=== PATIENT | female | born 1945 | race Caucasian/White ===

== ENCOUNTER 2022-11-19 16:45 | Outpatient (CLI) | payer MEDICARE | END 2022-11-19 17:00 | disposition home or self-care (01) | LOC: LAB.N 16:45 | PROVIDERS: ATTEND Physician Assistant Medical | DX: N12 Tubulo-interstitial nephritis, not specified as acute or chronic (principal) | CPT/HCPCS: 87086 ==

== ENCOUNTER 2023-06-17 13:53 | Outpatient (CLI) | payer MEDICARE ==
[2023-06-17 14:25] LABS: BASOPHILS # (AUTO) 0.1 10^3/uL (0.0-0.1); BASOPHILS % (AUTO) 1.4 %; EOSINOPHILS # (AUTO) 0.4 10^3/uL (0.0-0.7); EOSINOPHILS % (AUTO) 6.5 %; HCT - HEMATOCRIT 39.4 % (37.0-47.0); HGB - HEMOGLOBIN 12.2 g/dL (12.0-16.0); LYMPHOCYTES # (AUTO) 1.7 10^3/uL (1.5-3.5); LYMPHOCYTES % (AUTO) 25.9 %; MEAN CORPUSCULAR HEMOGLOBIN 28.5 pg (27.0-31.0); MEAN CORPUSCULAR VOLUME 92.1 fL (81.0-99.0); MEAN PLATELET VOLUME 9.3 fL (7.9-10.8); MONOCYTES # (AUTO) 0.4 10^3/uL (0.0-1.0); MONOCYTES % (AUTO) 5.7 %; NEUTROPHILS % (AUTO) 60.2 %; PLT - PLATELET COUNT 350 10^3/uL (130-450); RED BLOOD COUNT 4.28 10^6/uL (4.20-5.40); RED CELL DISTRIBUTION WIDTH 13.9 % (12.0-15.0); WHITE BLOOD COUNT 6.6 x10^3/uL (4.8-10.8)
[2023-06-17 14:42] LABS: ALBUMIN 4.6 g/dL (3.2-5.5); ALBUMIN/GLOBULIN RATIO 1.5 (1.0-2.2); BILIRUBIN,TOTAL 0.7 mg/dL (0.2-1.0); CALCIUM 9.8 mg/dL (8.5-10.3); POTASSIUM 4.2 mmol/L (3.5-4.5); TOTAL PROTEIN 7.6 g/dL (6.4-8.9)
== END 2023-06-17 13:54 | disposition home or self-care (01) ==
LOC: LAB 13:53
PROVIDERS: ATTEND Internal Medicine Medical Oncology
DX: C92.10 Chronic myeloid leukemia, BCR/ABL-positive, not having achieved remission (principal)
CPT/HCPCS: 36415; 80053; 81206; 81207; 81599; 85025

== ENCOUNTER 2023-06-28 13:18 | Emergency (ER) | payer MEDICARE ==
[2023-06-28 13:30] VITALS: BP 155/74; O2SAT 97
[2023-06-28 14:24] LABS: BILIRUBIN,URINE NEGATIVE (NEGATIVE); GLUCOSE, URINE (UA) NEGATIVE (NEGATIVE); KETONES,URINE (UA) NEGATIVE (NEGATIVE); LEUKOCYTE ESTERASE, URINE MODERATE (NEGATIVE); NITRITE,URINE NEGATIVE (NEGATIVE); OCCULT BLOOD,URINE NEGATIVE (NEGATIVE); PROTEIN,URINE NEGATIVE (NEGATIVE); UROBILINOGEN,URINE 0.2 (NORMAL) E.U./dL (NORMAL)
[2023-06-28 14:28] LABS: CLARITY,URINE CLEAR (CLEAR)
--- NOTE | 2023-06-28 14:33 | ED Physician Documentation ---
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 She does have some mild right flank pain with it. No fevers. States she had a UTI last year and was started on Cipro but had to be changed to cefpodoxime. I am not available to those culture results. 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 - Present Medications Home Medications: Ambulatory Orders Medication Instructions Recorded Confirmed Bosutinib [Bosulif] 200 mg PO HS 11/05/22 05/06/23 Ondansetron [Ondansetron Odt] 8 mg SL Q6HR 11/05/22 05/06/23 Cefpodoxime Proxetil [Vantin] 100 mg PO Q12H #10 tablet 06/28/23 Phenazopyridine HCl [Pyridium] 200 mg PO TID PRN #6 tablet 06/28/23 - Allergies Allergies/Adverse Reactions: Allergies Allergy/AdvReac Type Severity Reaction Status Date / Time aspirin Allergy Unknown Verified 06/28/23 13:22 Penicillins Allergy Unknown Verified 06/28/23 13:22 Sulfa (Sulfonamide Allergy Unknown Verified 06/28/23 13:22 Antibiotics) - Social History Does the pt smoke?: No Smoking Status: Never smoker Does the pt drink ETOH?: No Does the pt have substance abuse?: No - Immunizations Immunizations are current?: Yes PD ED PE NORMAL - Vitals Vital signs reviewed: Yes - General General: Alert and oriented X 3, No acute distress - Abdomen Abdomen: Non tender - Back Back: No CVA TTP Results - Vitals Vitals: Vital Signs - 24 hr 06/28/23 13:23 Temperature 36.8 C Heart Rate 90 Respiratory 18 Rate Blood Pressure 155/74 H O2 Saturation 97 Oxygen O2 Source Room air - Labs Labs: Laboratory Tests 06/28/23 13:45 Urine Color YELLOW Urine Clarity CLEAR Urine pH 6.0 Ur Specific [place] <=1.005 Urine Protein NEGATIVE Urine Glucose (UA) NEGATIVE Urine Ketones NEGATIVE Urine Occult Blood NEGATIVE Urine Nitrite NEGATIVE Urine Bilirubin NEGATIVE Urine Urobilinogen 0.2 (NORMAL) Ur Leukocyte Esterase MODERATE H Urine RBC 0-5 Urine WBC 6-10 H Ur Squamous Epith Cells MOD Squamous H Urine Bacteria Few Ur Microscopic Review INDICATED Urine Culture Comments NOT INDICATED PD Medical Decision Making - ED course ED course: 78-year-old woman with cystitis symptoms. She also has some right flank pain albeit not tender there and she appears well. Urinalysis does show signs of infection. She did have some squamous cells, but given her typical symptoms we will culture it anyway. Started on cefpodoxime. She states that she had been previously prescribed Cipro and it was changed to cefpodoxime due to interactions with her chemotherapy for her CML. Departure - Departure Disposition: Home, Self Care Clinical Impression: Cystitis Condition: Good Record reviewed to determine appropriate education?: Yes Instructions: ED UTI Cystitis Female Prescriptions: Phenazopyridine HCl [Pyridium] 200 mg PO TID PRN #6 tablet PRN Reason: dysuria Cefpodoxime Proxetil [Vantin] 100 mg PO Q12H #10 tablet Comments: I sent your prescription electronically to the [facility] pharmacy at the corner of [address] here in [place]. We will culture your urine, the results should be done in 48-72 hours. If an antibiotic change is necessary we will call you. Return if worse in the meantime, especially if you develop increasing flank pain, fevers, or cannot keep down the medication. Forms: PCP List Discharge Date/Time: 06/28/23 14:39
[2023-06-28 14:40] LABS: BACTERIA,URINE Few /HPF (None Seen); RBC,URINE 0-5 /HPF (0-5); SQUAMOUS EPITHELIAL CELL,UR MOD Squamous (<= Few)
== END 2023-06-28 14:39 | disposition home or self-care (01) ==
LOC: ED 13:18
DX: N30.90 Cystitis, unspecified without hematuria (principal); Z79.899 Other long term (current) drug therapy; Z87.440 Personal history of urinary (tract) infections
CPT/HCPCS: 81001; 81003; 87077; 87086; 87181; 99283

== ENCOUNTER 2023-08-05 13:55 | Emergency (ER) | payer MEDICARE ==
[2023-08-05 14:05] VITALS: BP 155/86; O2SAT 96
[2023-08-05 14:30] LABS: BILIRUBIN,URINE NEGATIVE (NEGATIVE); GLUCOSE, URINE (UA) NEGATIVE (NEGATIVE); KETONES,URINE (UA) NEGATIVE (NEGATIVE); OCCULT BLOOD,URINE NEGATIVE (NEGATIVE)
[2023-08-05 14:31] LABS: CLARITY,URINE CLOUDY (CLEAR)
[2023-08-05 14:38] LABS: BACTERIA,URINE Moderate /HPF (None Seen); RBC,URINE 0-5 /HPF (0-5); SQUAMOUS EPITHELIAL CELL,UR MANY Squamous (<= Few); WBC,URINE 0-3 /HPF (0-5)
--- NOTE | 2023-08-05 15:47 | ED Physician Documentation ---
PD HPI FEMALE - Stated complaint Stated Complaint: - Chief complaint Chief Complaint: UTI - History obtained from History obtained from: Patient - Additional information Additional information: Patient is a 78-year-old female presenting for evaluation of UTI symptoms. She reports having dysuria for the past 2 days. She states that she was recently a year ago and her has a penile implant. She states that she has been getting recurrent UTIs after they have sexual intercourse and this is at least her fourth episode.She says that she has tried other maneuvers to prevent infections such as drinking water and using estrogen cream which was prescribed by her provider. She denies fever, chest pain, abdominal pain.She is taking Pyridium for the dysuria. 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 - Present Medications Home Medications: Ambulatory Orders Medication Instructions Recorded Confirmed Bosutinib [Bosulif] 200 mg PO HS 11/05/22 05/06/23 Ondansetron [Ondansetron Odt] 8 mg SL Q6HR 11/05/22 05/06/23 Cefpodoxime Proxetil [Vantin] 100 mg PO Q12H #10 tablet 06/28/23 Phenazopyridine HCl [Pyridium] 200 mg PO TID PRN #6 tablet 06/28/23 Cefpodoxime Proxetil [Vantin] 100 mg PO Q12H #10 tablet 08/05/23 cephALEXin [Keflex] 500 mg PO ONCE PRN #7 cap 08/05/23 - Allergies Allergies/Adverse Reactions: Allergies Allergy/AdvReac Type Severity Reaction Status Date / Time aspirin Allergy Unknown Verified 08/05/23 14:03 Penicillins Allergy Unknown Verified 08/05/23 14:03 Sulfa (Sulfonamide Allergy Unknown Verified 08/05/23 14:03 Antibiotics) - Social History Does the pt smoke?: No Smoking Status: Never smoker Does the pt drink ETOH?: No Does the pt have substance abuse?: No - Immunizations Immunizations are current?: Yes PD ED PE NORMAL - General General: Alert and oriented X 3, No acute distress, Well developed/nourished - HEENT HEENT: Atraumatic - Neck Neck: Supple, no meningeal sign - Cardiac Cardiac: RRR - Respiratory Respiratory: No respiratory distress - Abdomen Abdomen: Normal bowel sounds, Soft, Non tender, Non distended - Derm Derm: Warm and dry - Neuro Neuro: Normal speech Results - Vitals Vitals: Vital Signs - 24 hr 08/05/23 14:03 Temperature 36.5 C Heart Rate 80 Respiratory 16 Rate Blood Pressure 155/86 H O2 Saturation 96 Oxygen O2 Source Room air - Labs Labs: Laboratory Tests 08/05/23 14:15 Urine Color DK. ORANGE Urine Clarity CLOUDY Urine pH 5.0 Ur Specific [place] 1.010 Urine Protein Urine Glucose (UA) NEGATIVE Urine Ketones NEGATIVE Urine Occult Blood NEGATIVE Urine Nitrite Urine Bilirubin NEGATIVE Urine Urobilinogen Ur Leukocyte Esterase Urine RBC 0-5 Urine WBC 0-3 Ur Squamous Epith Cells MANY Squamous H Urine Bacteria Moderate H Ur Microscopic Review INDICATED Urine Culture Comments NOT INDICATED PD Medical Decision Making - ED course Complexity details: reviewed results, d/w patient ED course: Patient is a 78-year-old female presenting with UTI symptoms for the past 2 days. Patient states that she has been getting these regularly after having intercourse with her .Vital signs are stable. No abdominal tenderness. Patient is on Pyridium so urine analysis is difficult to interpret but there are many bacteria and given her symptoms do feel it is appropriate to treat with antibiotics. Will start her on a course of cefpodoxime. We also discussed Treatment options for post colloidal UTIs as she has been getting these frequently. Discussed trial of antibiotic prophylaxis after intercourse with a single dose of cephalexin. She is agreeable to this. Her PCP is unavailable for the next month so I will prescribe a small amount of cephalexin which patient understands is to be used for Prophylaxis after intercourse. Departure - Departure Disposition: 01 Home, Self Care Clinical Impression: Urinary tract infection Condition: Stable Instructions: ED UTI Cystitis Female Prescriptions: cephALEXin [Keflex] 500 mg PO ONCE PRN #7 cap PRN Reason: Per Physician Order Cefpodoxime Proxetil [Vantin] 100 mg PO Q12H #10 tablet Comments: I am starting you on an antibiotic for urinary tract infection and called cefpodoxime (Vantin). I am also sending a prescription for a second antibiotic called cephalexin (Keflex). You can take this once a day after intercourse to try and prevent a UTI. I would recommend close follow-up with your primary care provider to discussed long-term management of post coital/intercourse UTIs. Return to the emergency department with any worsening symptoms. Your prescriptions were sent to the [facility] pharmacy. Forms: PCP List Discharge Date/Time: 08/05/23 15:53
== END 2023-08-05 15:53 | disposition home or self-care (01) ==
LOC: ED 13:55
DX: N39.0 Urinary tract infection, site not specified (principal); Z87.440 Personal history of urinary (tract) infections; Z79.899 Other long term (current) drug therapy
CPT/HCPCS: 81001; 81003; 87086; 99283

== ENCOUNTER 2023-09-20 15:54 | Outpatient (CLI) | payer MEDICARE ==
--- NOTE | 2023-09-24 09:35 | Ultrasound Report ---
PROCEDURE: Renal (Retroperitoneal) INDICATIONS: RENAL MASS TECHNIQUE: Real-time scanning was performed of the retroperitoneal organs, with image documentation. COMPARISON: None available. FINDINGS: Kidneys: Kidneys are normal in size. Right kidney measures 10.4 cm long; left kidney measures 9.5 c m long. Right renal cortical thickness is 1.1 cm; left renal cortical thickness is 1.1 cm. No hydro nephrosis or nephrolithiasis. Right mid kidney echogenic mass measuring 2 x 2 x 1.5 cm. There is inte rnal vascularity. Bladder: Pre-void bladder volume is 215 mL. Post-void residual is 38 mL. Pre-void images demonstra te no intraluminal masses or stones. On pre-void images, both ureteral jets are noted with color Dop pler interrogation. (Of note, ureteral jets may not be detectable in up to 25% of cases due to insuf ficient differences in specific gravity between ureteral and bladder urine). Miscellaneous: No free abdominal fluid. IMPRESSION: 1. Right mid kidney echogenic mass measuring 2 cm. Indeterminant. (Per report this previously measure d 1.8 cm). 2. No hydronephrosis. 3. Postvoid residual 38 cc. Consider further evaluation with renal MRI or CT. Reviewed by: Law Salgado MD on 09/24/2023 9:33 AM PDT Approved by: Law Salgado MD on 09/24/2023 9:33 AM PDT Station ID: [id number]
== END 2023-09-20 15:55 | disposition home or self-care (01) ==
LOC: DI 15:54
PROVIDERS: ATTEND Urology
DX: N28.89 Other specified disorders of kidney and ureter (principal)

== ENCOUNTER 2023-10-22 10:31 | Outpatient (CLI) | payer MEDICARE ==
[2023-10-22 10:58] LABS: BASOPHILS # (AUTO) 0.1 10^3/uL (0.0-0.1); BASOPHILS % (AUTO) 0.7 %; EOSINOPHILS # (AUTO) 0.3 10^3/uL (0.0-0.7); EOSINOPHILS % (AUTO) 3.7 %; HGB - HEMOGLOBIN 12.1 g/dL (12.0-16.0); LYMPHOCYTES # (AUTO) 1.7 10^3/uL (1.5-3.5); LYMPHOCYTES % (AUTO) 21.3 %; MEAN CORPUSCULAR HEMOGLOBIN 29.4 pg (27.0-31.0); MEAN CORPUSCULAR HGB CONC 31.8 g/dL (32.0-36.0); MEAN CORPUSCULAR VOLUME 92.2 fL (81.0-99.0); MEAN PLATELET VOLUME 9.3 fL (7.9-10.8); MONOCYTES # (AUTO) 0.5 10^3/uL (0.0-1.0); NEUTROPHILS # (AUTO) 5.6 10^3/uL (1.5-6.6); NEUTROPHILS % (AUTO) 67.8 %; PLT - PLATELET COUNT 355 10^3/uL (130-450); RED BLOOD COUNT 4.12 10^6/uL (4.20-5.40); RED CELL DISTRIBUTION WIDTH 13.9 % (12.0-15.0); WHITE BLOOD COUNT 8.2 x10^3/uL (4.8-10.8)
[2023-10-22 11:15] LABS: ALBUMIN 4.7 g/dL (3.2-5.5); ALBUMIN/GLOBULIN RATIO 1.6 (1.0-2.2); BILIRUBIN,TOTAL 0.6 mg/dL (0.2-1.0); CALCIUM 9.8 mg/dL (8.5-10.3); POTASSIUM 4.4 mmol/L (3.5-4.5); TOTAL PROTEIN 7.7 g/dL (6.4-8.9)
== END 2023-10-22 10:32 | disposition home or self-care (01) ==
LOC: LAB 10:31
PROVIDERS: ATTEND Internal Medicine Medical Oncology
DX: C92.10 Chronic myeloid leukemia, BCR/ABL-positive, not having achieved remission (principal)
CPT/HCPCS: 36415; 80053; 81206; 81207; 81599; 85025

== ENCOUNTER 2023-11-09 19:03 | Emergency (ER) | payer MEDICARE ==
--- NOTE | 2023-11-09 19:57 | XRAY Report ---
PROCEDURE: Ankle 3+V LT INDICATIONS: injury to ankle head @ 1800, c/o pain. TECHNIQUE: 2 views of the ankle were acquired. COMPARISON: None. FINDINGS: Bones: No fractures or dislocations. Ankle mortise is normally aligned. No suspicious bony lesions . Soft tissues: No tibiotalar joint effusion. Achilles tendon appears normal. IMPRESSION: No acute bony abnormality. If there is continued clinical concern for pathology or occult fracture, consider follow-up imaging w ith repeat radiographs in 10-14 days and possible advanced imaging (CT, MRI, bone scan) if symptoms p ersist. Reviewed by: Christiano Ibarra MD on 11/09/2023 7:55 PM PDT Approved by: Christiano Ibarra MD on 11/09/2023 7:55 PM PDT Station ID: [id number]
--- NOTE | 2023-11-09 20:20 | ED Physician Documentation ---
History of Present Illness - Stated complaint Stated Complaint: HEAD/LT ANKLE PX - Chief complaint Chief Complaint: Trauma Ext - Additonal information Additional information: Patient is a 78-year-old female presenting to the emergency department after a fall at home she is tripped over carpet hit her head and sustained injury to left ankle after rolling it. She notes she was able to get up did not lose consciousness and is not on blood thinners. She notes persistent pain to the lateral portion of the left ankle as well as persistent pain to lower neck and head. She notes she has history of degenerative changes to her neck and has c oncerns given persistent neck pain. No numbness tingling no confusion. Patient is ANO x 3 able to answer questions. 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 Medications Home Medications: Ambulatory Orders Medication Instructions Recorded Confirmed Bosutinib [Bosulif] 200 mg PO HS 11/05/22 05/06/23 Ondansetron [Ondansetron Odt] 8 mg SL Q6HR 11/05/22 05/06/23 Cefpodoxime Proxetil [Vantin] 100 mg PO Q12H #10 tablet 06/28/23 Phenazopyridine HCl [Pyridium] 200 mg PO TID PRN #6 tablet 06/28/23 Cefpodoxime Proxetil [Vantin] 100 mg PO Q12H #10 tablet 08/05/23 cephALEXin [Keflex] 500 mg PO ONCE PRN #7 cap 08/05/23 - Allergies Allergies/Adverse Reactions: Allergies Allergy/AdvReac Type Severity Reaction Status Date / Time aspirin Allergy Unknown Verified 11/09/23 19:17 Penicillins Allergy Unknown Verified 11/09/23 19:17 Sulfa (Sulfonamide Allergy Unknown Verified 11/09/23 19:17 Antibiotics) - Social History Does the pt smoke?: No Smoking Status: Never smoker Does the pt drink ETOH?: No Does the pt have substance abuse?: No - Immunizations Immunizations are current?: Yes - POLST Patient has POLST: No PD ED PE NORMAL - Vitals Vital signs reviewed: Yes - General General: Alert and oriented X 3 - HEENT HEENT: Atraumatic, PERRL, EOMI - Neck Neck: Supple, no meningeal sign, Other (Reproducible C-spine tenderness full range of motion intact however unable to clear with Nexus criteria given C-spine tenderness.) - Cardiac Cardiac: RRR - Respiratory Respiratory: No respiratory distress - Abdomen Abdomen: Normal bowel sounds, Non tender - Female Female : Deferred - Rectal Rectal: Deferred - Back Back: No CVA TTP - Derm Derm: Normal color, No rash - Extremities Extremities: No deformity, Other (Reproducible about lateral malleoli are tenderness no significant laxity full range of motion intact with strength intact bilaterally. No obvious deformity no fibular head tenderness good capillary refill and full range of motion of digits 1 through 5 and full range of motion of left knee intact.) Results - Vitals Vitals: Vital Signs - 24 hr 11/09/23 19:09 Temperature 36.9 C Heart Rate 80 Respiratory 16 Rate Blood Pressure 152/81 H O2 Saturation 99 Oxygen O2 Source Room air PD Medical Decision Making - ED course Complexity details: reviewed results, re-evaluated patient, d/w patient ED course: Patient is a 78-year-old female presenting to the emergency department with leg pain head pain and neck pain after a fall at home. She has persistent neck pain and ankle pain unable to bear weight on left ankle no previous injuries but does have history of degenerative disc disease in her neck. Vital stable on arrival physical exam shows reproducible C-spine tenderness unable to be cleared by Nexus criteria. Reproducible bilateral malleoli are tenderness to the left ankle but no fibular head tenderness. X-ray obtained of left ankle in triage shows no acute fracture patient most likely sprained given persistent pain on palpation and unable to bear weight at this time. Patient given Suleman wrap and crutches here in the emergency department. Patient still reporting reproducible neck pain will obtain C-spine and CT head on reevaluation. CT head showed no acute intracranial findings and reevaluation of C-spine does show degenerative changes in C5-C7 but no acute fracture or spondylolisthesis. Reassuring work-up here in the ED. Given reassuring work-up here in the ED will discharge home. Instructed patient to watch for any confusion worsening headaches vision changes numbness ting Departure - Departure Disposition: 01 Home, Self Care Clinical Impression: Left ankle sprain, Head injury, Ankle injury, Degenerative disc disease, cervical Condition: Good Instructions: ED Sprain Ankle W X Ray Comments: Your workup here in the emergency department showed most likely fall Forms: PCP List
--- NOTE | 2023-11-09 21:43 | CT Report ---
PROCEDURE: Cervical Spine WO INDICATIONS: neck pain, trauma TECHNIQUE: Noncontrast 3 mm thick sections acquired from the skull base to the T4 level. Sagittal and coronal r eformats were then constructed. For radiation dose reduction, the following was used: automated exp osure control, adjustment of mA and/or kV according to patient size. COMPARISON: None. FINDINGS: Image quality: Excellent. Bones: No fractures or dislocations. Visualized superior ribs are intact. Moderately severe degene rative disc disease at C6-C7 and C5-C6. Soft tissues: Prevertebral soft tissues are normal in thickness. No paravertebral hematomas. No ap ical pneumothoraces. IMPRESSION: No trauma found, no traumatic subluxation seen. Moderately severe low cervical degenerative disc dise ase at C5-6 and C6-7. Reviewed by: Tam Claudio MD on 11/09/2023 9:42 PM PDT Approved by: Tam Claudio MD on 11/09/2023 9:42 PM PDT Station ID: [id number]
--- NOTE | 2023-11-09 21:44 | CT Report ---
PROCEDURE: Head WO INDICATIONS: head injury and fall TECHNIQUE: Noncontrast 4.5 mm thick angled axial sections acquired from the foramen magnum to the vertex. For r adiation dose reduction, the following was used: automated exposure control, adjustment of mA and/or kV according to patient size. COMPARISON: None. FINDINGS: Image quality: Excellent. CSF spaces: Basal cisterns are patent. No extra-axial fluid collections. Ventricles are normal in size and shape. Brain: No midline shift. No intracranial masses or hemorrhage. Carver-white matter interface is norm al. Skull and face: Calvarium and visualized facial bones are intact, without suspicious lesions. Sinuses: Visualized sinuses and mastoids are clear. IMPRESSION: No acute intracranial pathology. No trauma seen. Reviewed by: Tam Claudio MD on 11/09/2023 9:43 PM PDT Approved by: Tam Claudio MD on 11/09/2023 9:43 PM PDT Station ID: [id number]
[2023-11-09 22:29] VITALS: BP 130/80; O2SAT 100
== END 2023-11-09 22:22 | disposition home or self-care (01) ==
LOC: ED 19:03
DX: S93.402A Sprain of unspecified ligament of left ankle, initial encounter (principal); S09.90XA Unspecified injury of head, initial encounter; W01.0XXA Fall on same level from slipping, tripping and stumbling without subsequent striking against object, initial encounter; M50.323 Other cervical disc degeneration at C6-C7 level
CPT/HCPCS: 99283; 99284

== ENCOUNTER 2023-11-19 08:00 | Outpatient (CLI) | payer MEDICARE | END 2023-11-19 08:01 | disposition home or self-care (01) | LOC: LAB 08:00 | PROVIDERS: ATTEND Urology | DX: R30.0 Dysuria (principal) | CPT/HCPCS: 87077; 87086; 87181 ==

== ENCOUNTER 2023-11-22 14:00 | Outpatient (CLI) | payer MEDICARE ==
--- NOTE | 2023-11-26 07:58 | Mammography Report ---
BILATERAL DIGITAL SCREENING MAMMOGRAM 3D/2D: 11/22/2023 CLINICAL: Routine screening. Personal history of left breast cancer. Comparison is made to exams dated: 08/11/2022 mammogram, 05/17/2021 mammogram, 03/02/2020 mammogram, mammogram, 10/24/2017 mammogram, and 01/14/2017 mammogram - [facility]. There are scattered areas of fibroglandular density in both breasts (category b / 25%-50% glandular t issue). There are benign post operative findings in the left breast. No significant masses, calcifications, or other findings are seen in either breast. There has been no significant interval change. IMPRESSION: BENIGN There is no mammographic evidence of malignancy. A 1 year screening mammogram is recommended. This exam was interpreted at Station ID: [id number]. NOTE: For mammograms, a report in lay terms will be sent to the patient. Approximately 15% of breast malignancies will not be visualized mammographically. In the management of a palpable breast mass, a negative mammogram must not discourage biopsy of a clinically suspicious lesion. Electronically Signed By: Morro jones/ai:11/25/2023 13:25:35 letter sent: No_Letter ACR BI-RADS Category 2: Benign Finding(s) 3342F PARENCHYMAL PATTERN: (A) - The breast(s) demonstrate(s) scattered fibroglandular densities. BI-RADS CATEGORY: (2) - 2 RECOMMENDATION: (ANNUAL) - Recommend routine annual screening mammography. [id number] 1 year screening LATERALITY: (B)
== END 2023-11-22 14:01 | disposition home or self-care (01) ==
LOC: DI 14:00
DX: Z12.31 Encounter for screening mammogram for malignant neoplasm of breast (principal); R92.323 Mammographic fibroglandular density, bilateral breasts; Z85.3 Personal history of malignant neoplasm of breast